=== PATIENT | female | born 1960 | race African-American/Black ===

== ENCOUNTER 2020-07-20 06:23 | Emergency (ER) | payer OTHER ==
[~2020-07-20] VITALS: Ht 162.6 cm; Wt 73.9 kg
[2020-07-20] MEDS ORDERED: SYNTHROID50 MCG (06:46)
[2020-07-20] MEDS ORDERED: TENORMIN50 M1 (06:46)
[2020-07-20] MEDS ORDERED: FORTAMET500 MG (06:46)
[2020-07-20] MEDS ORDERED: FENOFIBRATE150 MG (06:47)
== END 2020-07-20 11:04 | disposition home or self-care (01) ==
LOC: ER 06:23
DX: R07.0 Pain in throat (principal); R13.19 Other dysphagia